=== PATIENT | female | born 1980 | race Caucasian/White ===

== ENCOUNTER 2016-12-28 21:19 | Emergency (ER) | payer SELFPAY ==
[~2016-12-28] VITALS: Ht 167.6 cm; Wt 133.8 kg
[2016-12-28 21:23] VITALS: BP 162/116
[2016-12-28] MEDS ORDERED: HYDROCODONE/APAP 5/325MG TABLET. PO ONE (21:45)
[2016-12-28] MEDS ORDERED: NAPROXEN 500 MG TABLET PO ONE (21:45)
[2016-12-28] MEDS ORDERED: DIAZEPAM 5 MG TABLET PO ONE (21:45)
--- NOTE | 2016-12-28 22:16 | PHYS DOC ---
Past Medical History Past Medical History: Asthma, Bipolar, Other Additional Past Medical Histor: hypoglycemia Past Surgical History: Cholecystectomy, Tubal ligation Alcohol Use: None Drug Use: None Adult General Chief Complaint Chief Complaint: SHOULDER INJURY HPI HPI Patient is a 36 year old female with history of bipolar and asthma who presents today with moderate right shoulder, right lateral ribs, and coccyx pain after falling. Patient states she was jumping on a trampoline when she decided to jump with her leg straight out, so that she can land on her buttocks. She states the trampoline gave in and she fell through landing on her buttocks. She weighs 295 pounds. Review of Systems Review of Systems Constitutional: Denies fever or chills [] Eyes: Denies change in visual acuity, redness, or eye pain [] HENT: Denies nasal congestion or sore throat [] Respiratory: Denies cough or shortness of breath [] Cardiovascular: No additional information not addressed in HPI [] GI: Denies abdominal pain, nausea, vomiting, bloody stools or diarrhea [] : Denies dysuria or hematuria [] Musculoskeletal: Right shoulder pain, right lateral ribs pain, coccyx pain. Integument: Denies rash or skin lesions [] Neurologic: Denies headache, focal weakness or sensory changes [] Endocrine: Denies polyuria or polydipsia [] Current Medications Current Medications Current Medications Medications (Trade) Dose Ordered Sig/Shelia Start Time Stop Time Status Last Admin Dose Admin Acetaminophen/ Hydrocodone Bitart (Lortab 5/325) 2 tab 1X ONCE 12/28/16 21:45 12/28/16 21:46 DC 12/28/16 22:44 2 TAB Diazepam (Valium) 5 mg 1X ONCE 12/28/16 21:45 12/28/16 21:46 DC 12/28/16 22:43 5 MG Naproxen (Naprosyn) 500 mg 1X ONCE 12/28/16 21:45 12/28/16 21:46 DC 12/28/16 22:44 500 MG Allergies Allergies Allergies Coded Allergies Type Severity Reaction Last Updated Verified Penicillins Allergy Intermediate Hives 07/04/14 Yes Physical Exam Physical Exam Constitutional: Well developed, well nourished, no acute distress, non-toxic appearance. [] HENT: Normocephalic, atraumatic, bilateral external ears normal, oropharynx moist, no oral exudates, nose normal. [] Eyes: PERRLA, EOMI, conjunctiva normal, no discharge. [] Neck: Normal range of motion, no tenderness, supple, no stridor. [] Cardiovascular:Heart rate regular rhythm, no murmur [] Lungs & Thorax: Bilateral breath sounds clear to auscultation, diffuse tenderness to the right lateral ribs, mid axillary line approximately ribs 4,5, 6. Abdomen: Bowel sounds normal, soft, no tenderness, no masses, no pulsatile masses. [] Skin: Warm, dry, no erythema, no rash. [] Back: Diffuse paraspinal muscle tenderness to the lower lumbar region, mild tenderness to the coccyx, no CVA tenderness. [] Extremities: Right shoulder with no obvious deformity, tenderness on palpation of the right shoulder ACM joint. Full passive range of motion to the right shoulder. Adequate abduction and adduction of the right shoulder. +2 right radial pulse. Adequate ulnar median radial sensation to the right upper extremity. Sensation intact to the right upper extremity. Neurologic: Alert and oriented X 3, normal motor function, normal sensory function, no focal deficits noted. [] Psychologic: Affect normal, judgement normal, mood normal. [] Current Patient Data Vital Signs Vital Signs Date Time Temp Pulse Resp B/P Pulse Ox O2 Delivery O2 Flow Rate FiO2 12/28/16 22:44 18 Room Air 12/28/16 21:23 98.1 120 162/116 100 98.1 EKG EKG [] Radiology/Procedures Radiology/Procedures [] Course & Med Decision Making Course & Med Decision Making Pertinent Labs and Imaging studies reviewed. (See chart for details) Patient is in the ED with right shoulder, right lateral ribs, and low back pain after falling through a trampoline that broke. Right shoulder x-rays interpreted by Dr. Bryan were noted for an old healed humerus fracture or mass , lumbar spine x-rays are negative for any acute findings, right rib x-rays with PA chest are negative for any acute findings. Provided a sling in the Ed. Patient was discharged with instructions to follow-up with orthopedic doctor or primary care doctor in one week if pain continues. Ice elevation encouraged. Provided return precautions and discharged in stable condition. Dragon Disclaimer Dragon Disclaimer This electronic medical record was generated, in whole or in part, using a voice recognition dictation system. Departure Departure Impression: Primary Impression: Fall involving trampoline as cause of accidental injury Additional Impressions: Lumbar contusion Shoulder contusion Contusion of rib on right side Disposition: 01 HOME, SELF-CARE Condition: STABLE Referrals: UNKNOWN PCP NAME (PCP) CHAYO MCDERMOTT MD You can follow-up with the provided doctor or your orthopedic doctor in one week Patient Instructions: Back Pain, Adult, Contusion Additional Instructions: Please apply ice to the affected regions. Elevate the affected extremity You can sit on a donut cushion to remove pressure from your coccyx. Follow up with your doctor or the provided doctor in one week Problem Qualifiers Additional Impressions: Lumbar contusion Encounter type: initial encounter Qualified Code: S30.0XXA - Contusion of lower back and pelvis, initial encounter Shoulder contusion Encounter type: initial encounter Laterality: right Qualified Code: S40.011A - Contusion of right shoulder, initial encounter Contusion of rib on right side Encounter type: initial encounter Qualified Code: S20.211A - Contusion of right front wall of thorax, initial encounter YAS ELAINE APRN Dec 28, 2016 22:16
--- NOTE | 2016-12-29 08:10 | RAD ---
Indication fall, pain. AP and lateral views of the lumbar spine were obtained as well as a coned view targeted to the lumbosacral junction. There is a transitional segment. Vertebral height alignment and disc spaces are normal. No fracture or significant bony finding is seen. Left renal calculus noted. Slight wedging of lower thoracic vertebral body segments is likely normal IMPRESSION: Normal plain films of the lumbar spine
--- NOTE | 2016-12-29 08:14 | RAD ---
Indication fall, pain. AP view of the chest was obtained as well as several films targeted to right ribs. No prior imaging of the chest is available. The heart and pulmonary vessels appear normal. There is a calcified granuloma in the right lung and occasional calcified right hilar lymph nodes. There is no pleural fluid or pneumothorax. Films of right ribs appear normal. IMPRESSION: No acute finding seen in the chest. Normal plain films right ribs
--- NOTE | 2016-12-29 08:17 | RAD ---
Indication fall. Pain. Internally and externally rotated views of the right shoulder as well as a Y view were obtained. No bony abnormality is seen
== END 2016-12-28 23:29 | disposition home or self-care (01) ==
LOC: ER 21:19
DX: S30.0XXA Contusion of lower back and pelvis, initial encounter (principal); S40.011A Contusion of right shoulder, initial encounter; S20.211A Contusion of right front wall of thorax, initial encounter; F31.9 Bipolar disorder, unspecified; J45.909 Unspecified asthma, uncomplicated; Z88.0 Allergy status to penicillin; W09.8XXA Fall on or from other playground equipment, initial encounter; Y93.44 Activity, trampolining; Y92.89 Other specified places as the place of occurrence of the external cause; Y99.8 Other external cause status
CPT/HCPCS: 71101; 72100; 73030; 99284